=== PATIENT | male | born 1990 | race Caucasian/White ===

== ENCOUNTER 2018-06-11 00:09 | Emergency (ER) | payer SELFPAY ==
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
[2018-06-11] MEDS ORDERED: SKIN ADHESIVE (DERMABOND) 1 EACH TP ONE (00:54)
[2018-06-11 01:29] VITALS: BP 132/73
== END 2018-06-11 01:27 | disposition home or self-care (01) ==
PROC: 09QKXZZ Repair Nasal Mucosa and Soft Tissue, External Approach (ICD-10-PCS; principal; 2018-06-11)
DX: S01.21XA Laceration without foreign body of nose, initial encounter (principal); M95.0 Acquired deformity of nose; W50.0XXA Accidental hit or strike by another person, initial encounter